=== PATIENT | female | born 1990 | race Two or more races ===

== ENCOUNTER 2016-09-21 06:02 | Emergency (ER) | payer OTHER ==
[~2016-09-21] VITALS: Ht 167.6 cm; Wt 95.0 kg
[~2016-09-21 06:02] MED LIST: BIAXIN250 MG PO; FERROUS GLUCON324 MG PO; IBUPROFEN800 MG PO; MACROBID100 MG PO; MIRENA52 MG IY; MOTRIN800 MG PO; NAPROSYN500 MG PO; NOHOMEMEDS; OMEPRAZOLE40 M1 PO; PHENERGAN25 MG PR; TRAMADOL HCL50 MG PO; ULTRAM50 MG PO; ZOFRAN ODT4 MG PO; ZOFRAN4 MG PO
[2016-09-21 06:04] VITALS: BP 116/81
[2016-09-21 06:40] LABS: EOSINOPHIL (%) 2.9 % (0-5); EOSINOPHIL COUNT 0.2 K/uL (0-0.3); HEMATOCRIT 38.7 % (36.0-46.0); IMMATURE GRANULOCYTE (%) 0.1 % (0.0-0.7); IMMATURE GRANULOCYTE COUNT 0.1 K/uL; LYMPHOCYTE COUNT 2.7 K/uL (1.0-2.8); MCH 31.1 PG (29.0-34.0); MCHC 34.1 G/DL (30.0-36.0); MCV 91.3 FL (83-99); MONOCYTE COUNT 0.5 K/uL (0-0.8); NEUTROPHIL (%) 51.4 % (45-76); NEUTROPHIL COUNT 3.6 K/uL (1.8-6.4); PLATELET COUNT 213 K/uL (156-360); RBC DIS.WIDTH-CV 12.3 % (11.8-14.6); RED BLOOD COUNT 4.24 M/uL (3.80-5.20)
[2016-09-21 07:37] LABS: ALKALINE PHOSPHATASE 77 IU/L (3-129); ANION GAP 6 MEQ/L (2-14); CHLORIDE 107 MEQ/L (99-109); GFR ESTIMATE (CALCULATED) > 59 mL/min/; GLUCOSE 103 mg/dL (70-99); LIPASE 39 U/L (1.0-51.0); POTASSIUM 3.7 MEQ/L (3.7-5.4); SAMPLE HEMOLYSIS CHECK 0; SAMPLE ICTERIC CHECK 0; SAMPLE LIPEMIA CHECK 0; SODIUM 140 MEQ/L (136-147); TOTAL BILIRUBIN 0.3 MG/DL (0.0-1.0); UREA NITROGEN (BUN) 17 mg/dL (9-23)
== END 2016-09-21 08:47 | disposition home or self-care (01) ==
LOC: EME 06:02
PROVIDERS: Emergency Medicine
DX: K29.70 Gastritis, unspecified, without bleeding (principal); K21.9 Gastro-esophageal reflux disease without esophagitis
CPT/HCPCS: 80053; 83690; 85025; 99281; 99284; J1885

== ENCOUNTER 2017-01-06 02:33 | Emergency (ER) | payer OTHER ==
[~2017-01-06] VITALS: Ht 167.6 cm; Wt 96.3 kg
[2017-01-06 03:40] LABS: HEMATOCRIT 39.9 % (36.0-46.0); MCH 30.7 PG (29.0-34.0); MCHC 33.1 G/DL (30.0-36.0); MCV 92.8 FL (83-99); MEAN PLAT.VOLUME 10.9 uM^3 (9.5-12.4); PLATELET COUNT 232 K/uL (156-360); RBC DIS.WIDTH-CV 12.4 % (11.8-14.6); RBC DIS.WIDTH-SD 42.3 % (39-53); WHITE BLOOD COUNT 7.5 K/uL (4.1-10.2)
[2017-01-06 03:52] LABS: CHLORIDE 106 mEq/L (99-109); POTASSIUM 3.9 mEq/L (3.7-5.4); SODIUM 140 mEq/L (136-147)
[2017-01-06 03:54] LABS: GLUCOSE 114 mg/dL (70-99)
[2017-01-06 03:56] LABS: ANION GAP 7 MEQ/L (2-14); TOTAL BILIRUBIN 0.3 mg/dL (0.0-1.0)
[2017-01-06 03:58] LABS: ALKALINE PHOSPHATASE 75 IU/L (3-129); GFR ESTIMATE (CALCULATED) > 59 mL/min/
[2017-01-06 03:59] LABS: UREA NITROGEN (BUN) 12 mg/dL (9-23)
[2017-01-06 04:00] LABS: DIRECT BILIRUBIN 0.1 mg/dL (0.0-0.3)
[2017-01-06 04:01] LABS: LIPASE 34 U/L (1.0-51.0)
[2017-01-06 04:10] LABS: QUANTITATIVE HCG < 4.0 MIU/ML
[2017-01-06] MEDS ORDERED: ZANTAC150 MG PO (04:23)
[2017-01-06 04:41] VITALS: BP 132/97
== END 2017-01-06 04:41 | disposition home or self-care (01) ==
LOC: EME 02:33
PROVIDERS: Emergency Medicine
DX: K29.00 Acute gastritis without bleeding (principal); E05.00 Thyrotoxicosis with diffuse goiter without thyrotoxic crisis or storm; Z88.0 Allergy status to penicillin; Z97.5 Presence of (intrauterine) contraceptive device
CPT/HCPCS: 80048; 80076; 83690; 84702; 85027; 99281; 99284

== ENCOUNTER 2017-01-11 07:10 | Emergency (ER) | payer OTHER ==
[~2017-01-11] VITALS: Ht 167.6 cm; Wt 96.2 kg
[~2017-01-11 07:10] MED LIST changes: +ZANTAC150 MG PO
[2017-01-11 07:32] LABS: HEMATOCRIT 39.4 % (36.0-46.0); MCH 30.9 PG (29.0-34.0); MEAN PLAT.VOLUME 10.7 uM^3 (9.5-12.4); PLATELET COUNT 219 K/uL (156-360); RED BLOOD COUNT 4.33 M/uL (3.80-5.20)
[2017-01-11 07:56] LABS: ADD MIUA? YES; BILIRUBIN NEGATIVE; BLOOD NEGATIVE; COLOR YELLOW ((YELLOW)); GLUCOSE (STRIP) NEGATIVE; KETONES NEGATIVE; LEUKOCYTES MODERATE; NITRITE NEGATIVE; PROTEIN (STRIP) NEGATIVE; SPECIFIC GRAVITY 1.021 (1.000-1.030); UROBILINOGEN 0.2 MG/DL (0.2-1.0)
[2017-01-11 08:03] LABS: ANION GAP 7 MEQ/L (2-14); CHLORIDE 108 MEQ/L (99-109); SAMPLE HEMOLYSIS CHECK 1; SAMPLE ICTERIC CHECK 0; SAMPLE LIPEMIA CHECK 1; SODIUM 140 MEQ/L (136-147); TOTAL BILIRUBIN 0.3 MG/DL (0.0-1.0)
[2017-01-11 08:05] LABS: BACTERIA RARE /HPF; EPITHELIAL CELLS 2+ /HPF; MUCUS TRACE /LPF; UCUL ADDED? NO; WHITE BLOOD CELLS 0-5 /HPF (0-5)
[2017-01-11 08:09] LABS: ALKALINE PHOSPHATASE 68 IU/L (3-129); GFR ESTIMATE (CALCULATED) > 59 mL/min/; GLUCOSE 111 mg/dL (70-99); LIPASE 44 U/L (1.0-51.0); UREA NITROGEN (BUN) 13 mg/dL (9-23)
[2017-01-11 08:12] LABS: QUANTITATIVE HCG < 4.0 MIU/ML
[2017-01-11 09:28] VITALS: BP 116/71
== END 2017-01-11 09:29 | disposition home or self-care (01) ==
LOC: EME 07:10
DX: K29.70 Gastritis, unspecified, without bleeding (principal); K21.9 Gastro-esophageal reflux disease without esophagitis; Z88.0 Allergy status to penicillin
CPT/HCPCS: 80053; 81003; 83690; 84702; 85027; 99281; 99284

== ENCOUNTER 2017-03-05 07:35 | Emergency (ER) | payer OTHER ==
[~2017-03-05] VITALS: Ht 167.6 cm; Wt 95.5 kg
[2017-03-05 08:06] LABS: EOSINOPHIL (%) 2.4 % (0-5); EOSINOPHIL COUNT 0.2 K/uL (0-0.3); HEMATOCRIT 39.4 % (36.0-46.0); IMMATURE GRANULOCYTE (%) 0.1 % (0.0-0.7); INSTRUMENT ABS NEUTROPHIL CT 4.1 K/uL; LYMPHOCYTE COUNT 2.7 K/uL (1.0-2.8); MCH 30.5 PG (29.0-34.0); MCHC 33.8 G/DL (30.0-36.0); MCV 90.4 FL (83-99); MONOCYTE (%) 5.2 % (3-12); MONOCYTE COUNT 0.4 K/uL (0-0.8); NEUTROPHIL COUNT 4.1 K/uL (1.8-6.4); PLATELET COUNT 226 K/uL (156-360); RBC DIS.WIDTH-CV 12.2 % (11.8-14.6); RBC DIS.WIDTH-SD 40.4 % (39-53); RED BLOOD COUNT 4.36 M/uL (3.80-5.20); WHITE BLOOD COUNT 7.4 K/uL (4.1-10.2)
[2017-03-05 08:20] LABS: CHLORIDE 108 mEq/L (99-109); POTASSIUM 3.8 mEq/L (3.7-5.4); SODIUM 139 mEq/L (136-147)
[2017-03-05 08:23] LABS: GLUCOSE 112 mg/dL (70-99)
[2017-03-05 08:24] LABS: ANION GAP 9 MEQ/L (2-14); TOTAL BILIRUBIN 0.5 mg/dL (0.0-1.0)
[2017-03-05 08:26] LABS: ALKALINE PHOSPHATASE 73 IU/L (3-129); GFR ESTIMATE (CALCULATED) > 59 mL/min/
[2017-03-05 08:27] LABS: UREA NITROGEN (BUN) 16 mg/dL (9-23)
[2017-03-05 08:30] LABS: LIPASE 48 U/L (1.0-51.0)
[2017-03-05] MEDS ORDERED: PROTONIX40 MG PO (10:52)
[2017-03-05 11:02] VITALS: BP 110/82
== END 2017-03-05 11:02 | disposition home or self-care (01) ==
LOC: EME 07:35
PROVIDERS: Emergency Medicine
DX: K21.0 Gastro-esophageal reflux disease with esophagitis (principal); E05.00 Thyrotoxicosis with diffuse goiter without thyrotoxic crisis or storm; Z88.0 Allergy status to penicillin
CPT/HCPCS: 80053; 83690; 85025; 99281; 99283

== ENCOUNTER 2017-03-16 01:50 | Emergency (ER) | payer OTHER ==
[~2017-03-16] VITALS: Ht 167.6 cm; Wt 94.9 kg
[~2017-03-16 01:50] MED LIST changes: +PROTONIX40 MG PO
[2017-03-16 02:49] LABS: HEMATOCRIT 40.8 % (36.0-46.0); MCH 30.9 PG (29.0-34.0); MCHC 33.8 G/DL (30.0-36.0); MCV 91.3 FL (83-99); MEAN PLAT.VOLUME 10.5 uM^3 (9.5-12.4); PLATELET COUNT 282 K/uL (156-360); RBC DIS.WIDTH-CV 11.9 % (11.8-14.6); RBC DIS.WIDTH-SD 39.7 % (39-53); RED BLOOD COUNT 4.47 M/uL (3.80-5.20); WHITE BLOOD COUNT 9.9 K/uL (4.1-10.2)
[2017-03-16 03:03] LABS: CHLORIDE 105 mEq/L (99-109); POTASSIUM 3.8 mEq/L (3.7-5.4); SODIUM 143 mEq/L (136-147)
[2017-03-16 03:05] LABS: GLUCOSE 125 mg/dL (70-99)
[2017-03-16 03:06] LABS: ANION GAP 11 MEQ/L (2-14)
[2017-03-16 03:07] LABS: TOTAL BILIRUBIN 0.5 mg/dL (0.0-1.0)
[2017-03-16 03:08] LABS: ALKALINE PHOSPHATASE 85 IU/L (3-129)
[2017-03-16 03:09] LABS: GFR ESTIMATE (CALCULATED) > 59 mL/min/
[2017-03-16 03:10] LABS: UREA NITROGEN (BUN) 16 mg/dL (9-23)
[2017-03-16 03:17] LABS: LIPASE 34 U/L (1.0-51.0)
[2017-03-16 03:36] LABS: QUANTITATIVE HCG < 4.0 MIU/ML
[2017-03-16] MEDS ORDERED: CARAFATE1 GM PO (04:39)
[2017-03-16] MEDS ORDERED: NORCO 5/3251 TABLET PO (04:39)
[2017-03-16 05:03] VITALS: BP 129/100
[2017-03-16] MEDS ORDERED: ZOFRAN ODT4 MG PO (15:39)
[2017-03-16] MEDS ORDERED: PERCOCET 5/31 TABLET PO (15:39)
[2017-03-20] MEDS ORDERED: OXYCODONE HCL10 MG PO (08:55)
[2017-03-20] MEDS ORDERED: COLACE100 MG PO (08:56)
== END 2017-03-16 05:04 | disposition home or self-care (01) ==
LOC: EME 01:50
DX: K80.20 Calculus of gallbladder without cholecystitis without obstruction (principal); E05.00 Thyrotoxicosis with diffuse goiter without thyrotoxic crisis or storm
CPT/HCPCS: 76705; 80053; 81003; 83690; 84702; 85027; 99281; 99285; J2270; J2405

== ENCOUNTER 2017-03-16 12:12 | Emergency (ER) | payer OTHER ==
[~2017-03-16] VITALS: Ht 167.6 cm; Wt 92.0 kg
[~2017-03-16 12:12] MED LIST changes: +CARAFATE1 GM PO; +NORCO 5/3251 TABLET PO
[2017-03-16 13:29] LABS: EOSINOPHIL (%) 0 % (0-5); HEMATOCRIT 42.6 % (36.0-46.0); IMMATURE GRANULOCYTE (%) 0.3 % (0.0-0.7); INSTRUMENT ABS NEUTROPHIL CT 9.8 K/uL; LYMPHOCYTE COUNT 1.4 K/uL (1.0-2.8); MCH 30.4 PG (29.0-34.0); MCV 89.3 FL (83-99); MEAN PLAT.VOLUME 11.1 uM^3 (9.5-12.4); MONOCYTE (%) 3.1 % (3-12); MONOCYTE COUNT 0.4 K/uL (0-0.8); NEUTROPHIL (%) 84.4 % (45-76); NEUTROPHIL COUNT 9.8 K/uL (1.8-6.4); PLATELET COUNT 259 K/uL (156-360); RBC DIS.WIDTH-CV 11.8 % (11.8-14.6); RBC DIS.WIDTH-SD 38.2 % (39-53); RED BLOOD COUNT 4.77 M/uL (3.80-5.20); WHITE BLOOD COUNT 11.7 K/uL (4.1-10.2)
[2017-03-16 13:39] LABS: CHLORIDE 105 mEq/L (99-109); POTASSIUM 3.8 mEq/L (3.7-5.4); SODIUM 140 mEq/L (136-147)
[2017-03-16 13:41] LABS: GLUCOSE 121 mg/dL (70-99)
[2017-03-16 13:43] LABS: ANION GAP 11 MEQ/L (2-14); TOTAL BILIRUBIN 0.6 mg/dL (0.0-1.0)
[2017-03-16 13:45] LABS: ALKALINE PHOSPHATASE 96 IU/L (3-129); GFR ESTIMATE (CALCULATED) > 59 mL/min/
[2017-03-16 13:46] LABS: UREA NITROGEN (BUN) 13 mg/dL (9-23)
[2017-03-16 13:48] LABS: LIPASE 22 U/L (1.0-51.0)
[2017-03-16] MEDS ORDERED: ZOFRAN ODT4 MG PO (15:39)
[2017-03-16] MEDS ORDERED: PERCOCET 5/31 TABLET PO (15:39)
[2017-03-16 16:40] VITALS: BP 134/67
[2017-03-20] MEDS ORDERED: OXYCODONE HCL10 MG PO (08:55)
[2017-03-20] MEDS ORDERED: COLACE100 MG PO (08:56)
== END 2017-03-16 16:46 | disposition home or self-care (01) ==
LOC: EME 12:12
PROVIDERS: Emergency Medicine
DX: K80.20 Calculus of gallbladder without cholecystitis without obstruction (principal); E05.00 Thyrotoxicosis with diffuse goiter without thyrotoxic crisis or storm
CPT/HCPCS: 74176; 80053; 83690; 85025; 99281; 99285; J1200; J1630; J2270; J7030; S0028

== ENCOUNTER 2017-03-21 06:39 | Day surgery (SDC) | payer OTHER ==
[~2017-03-21] VITALS: Ht 167.6 cm; Wt 92.1 kg
[~2017-03-21 06:39] MED LIST changes: +COLACE100 MG PO; +OXYCODONE HCL10 MG PO; +PERCOCET 5/31 TABLET PO
[2017-03-21 07:53] VITALS: BP 113/75
[2017-03-21] MEDS ORDERED: PERCOCET 5/31 TABLET PO (10:26)
[2017-03-21 11:43] VITALS: BP 114/68
[2017-03-21 12:50] VITALS: BP 108/62
== END 2017-03-21 13:09 | disposition home or self-care (01) ==
LOC: SDC 06:39
PROC: 0FT44ZZ Resection of Gallbladder, Percutaneous Endoscopic Approach (ICD-10-PCS; principal; 2017-03-21)
DX: K80.10 Calculus of gallbladder with chronic cholecystitis without obstruction (principal); F43.23 Adjustment disorder with mixed anxiety and depressed mood; D64.9 Anemia, unspecified; E05.00 Thyrotoxicosis with diffuse goiter without thyrotoxic crisis or storm; E03.9 Hypothyroidism, unspecified; Z88.0 Allergy status to penicillin; Z83.3 Family history of diabetes mellitus; Z82.49 Family history of ischemic heart disease and other diseases of the circulatory system; Z80.1 Family history of malignant neoplasm of trachea, bronchus and lung; Z81.8 Family history of other mental and behavioral disorders
CPT/HCPCS: 81003; 88304; J0131; J1100; J1170; J1885; J2250; J2405; J2765; J3010

== ENCOUNTER 2017-09-20 12:16 | Emergency (ER) | payer OTHER ==
[~2017-09-20] VITALS: Ht 167.6 cm; Wt 90.4 kg
[2017-09-20 13:10] LABS: HEMATOCRIT 42.9 % (36.0-46.0); HEMOGLOBIN 15.2 G/DL (11.9-15.5); MCH 31.8 PG (29.0-34.0); MCHC 35.4 G/DL (30.0-36.0); MCV 89.7 FL (83-99); PLATELET COUNT 220 K/uL (156-360); RBC DIS.WIDTH-SD 39.8 % (39-53); RED BLOOD COUNT 4.78 M/uL (3.80-5.20); WHITE BLOOD COUNT 6.9 K/uL (4.1-10.2)
[2017-09-20 13:22] LABS: ALBUMIN 4.5 g/dL (3.2-4.8); CHLORIDE 108 mEq/L (99-109); POTASSIUM 3.4 mEq/L (3.7-5.4); SODIUM 141 mEq/L (136-147)
[2017-09-20 13:24] LABS: GLUCOSE 110 mg/dL (70-99)
[2017-09-20 13:26] LABS: TOTAL BILIRUBIN 0.6 mg/dL (0.0-1.0)
[2017-09-20 13:28] LABS: ALKALINE PHOSPHATASE 83 IU/L (3-129); CREATININE 0.8 mg/dL (0.6-1.3); GFR ESTIMATE (CALCULATED) > 59 mL/min/
[2017-09-20 13:29] LABS: UREA NITROGEN (BUN) 15 mg/dL (9-23)
[2017-09-20 13:30] LABS: AST (GOT) 21 IU/L (2-34)
[2017-09-20 13:31] LABS: ALT (GPT) 19 IU/L (3-49); LIPASE 22 U/L (1.0-51.0)
[2017-09-20 13:39] LABS: QUANTITATIVE HCG < 4.0 MIU/ML
[2017-09-20] MEDS ORDERED: ZOFRAN ODT4 MG PO (16:55)
[2017-09-20] MEDS ORDERED: FLOMAX0.4 MG PO (16:55)
[2017-09-20] MEDS ORDERED: PERCOCET 5/31 TABLET PO (16:55)
[2017-09-20 16:58] LABS: APPEARANCE CLOUDY ((CLEAR)); BILIRUBIN NEGATIVE; BLOOD NEGATIVE; COLOR YELLOW ((YELLOW)); GLUCOSE (STRIP) NEGATIVE; KETONES 80; LEUKOCYTES SMALL; NITRITE NEGATIVE; PROTEIN (STRIP) 30; UROBILINOGEN 0.2 MG/DL (0.2-1.0)
[2017-09-20 17:21] LABS: RED BLOOD CELLS NONE SEEN /HPF (0-5)
[2017-09-20 17:22] LABS: BACTERIA RARE /HPF; EPITHELIAL CELLS 2+ /HPF; MUCUS NONE SEEN /LPF; UCUL ADDED? NO; WHITE BLOOD CELLS RARE /HPF (0-5)
[2017-09-20 18:03] VITALS: BP 116/80
== END 2017-09-20 18:11 | disposition home or self-care (01) ==
LOC: EME 12:16
DX: N13.2 Hydronephrosis with renal and ureteral calculous obstruction (principal); E05.00 Thyrotoxicosis with diffuse goiter without thyrotoxic crisis or storm; Z90.49 Acquired absence of other specified parts of digestive tract; Z88.0 Allergy status to penicillin
CPT/HCPCS: 74177; 80053; 81003; 81025; 83605; 83690; 84702; 85027; 99281; 99285; J1200; J1885; J2270; J2765; J7030